=== PATIENT | female | born 1975 | race Caucasian/White ===

== ENCOUNTER 2022-05-15 11:25 | Outpatient (CLI) | payer BC, SELFPAY | END 2022-05-15 11:26 | disposition home or self-care (01) | PROVIDERS: PCP Physician Assistant Medical; Visit Provider Physician Assistant Medical | DX: I10 Essential (primary) hypertension (principal); F32.A Depression, unspecified; F41.9 Anxiety disorder, unspecified | CPT/HCPCS: 80053; 80061; 84443 ==

== ENCOUNTER 2023-06-04 08:40 | Outpatient (CLI) | payer OTHER, SELFPAY | END 2023-06-04 08:41 | disposition home or self-care (01) | LOC: NFLDREF 08:41 | PROVIDERS: PCP Physician Assistant Medical; Visit Provider Physician Assistant | DX: N92.0 Excessive and frequent menstruation with regular cycle (principal); Z13.29 Encounter for screening for other suspected endocrine disorder | CPT/HCPCS: 84443 ==

== ENCOUNTER 2023-06-15 13:58 | Outpatient (CLI) | payer OTHER, SELFPAY ==
--- NOTE | 2023-06-15 14:00 | US_ITS ---
Patient: DOMONIQUE LAN Facility:?[facility] Patient ID:?[id number] Site Patient ID:?[id number]. Site :?[id number] Study:?US-Pelvis TRANSABDOMINAL AND TRANSVAGINAL-06/15/2023 2:44:00 PM Ordering Physician:?GAGANDEEP JENKINS Final Report: INDICATION: Excessive and frequent menstruation. TECHNIQUE: Transabdominal and transvaginal pelvic ultrasound. Grayscale and duplex Doppler images. FINDINGS: Uterus is anteverted and measures 0.3 x 4.9 x 6.6 cm. Endometrial stripe thickness is 1.4 cm. 2.2 cm intramural and 1.9 cm submucosal leiomyomas. Few tiny cystic spaces within the junctional zone suggesting adenomyosis. Right ovary contains a 3.5 cm simple cyst/dominant follicle. Both ovaries have normal color and spectral Doppler flow. No abnormal adnexal mass or free fluid. IMPRESSION: 1. Two uterine leiomyomas, one of which is submucosal. 2. Possible adenomyosis. 3. 1.4 cm endometrium. Dictated by Yoan Castillo MD @ 06/16/2023 8:52:31 AM Signed by:?Yoan Castillo MD @06/16/2023 8:52:31 AM (Electronic Signature)
== END 2023-06-15 13:59 | disposition home or self-care (01) ==
LOC: US 13:58
PROVIDERS: PCP Physician Assistant Medical; Visit Provider Physician Assistant
DX: N92.0 Excessive and frequent menstruation with regular cycle (principal); D25.9 Leiomyoma of uterus, unspecified; R93.89 Abnormal findings on diagnostic imaging of other specified body structures
CPT/HCPCS: 76830; 76856; 93976

== ENCOUNTER 2023-10-01 07:26 | Day surgery (SDC) | payer OTHER, SELFPAY ==
[2023-10-01] MEDS: LACTATED RINGERS 1000 ML 1,000 ML 100 ML IV (07:20)
[2023-10-01 07:54] VITALS: BP 134/88; PULSE 81; RESP 20; TEMP 36.7; O2SAT 97
[2023-10-01 07:56] VITALS: BMI 31.2
[2023-10-01 08:03] LABS: Basophils Absolute Auto 0.04 K/uL (0.00-0.30); Basophils Percent Auto 0.5 % (0.0-3.0); Eosinophils Absolute Auto 0.07 K/uL (0.00-0.50); Eosinophils Percent Auto 0.9 % (0.0-7.0); Hematocrit 38.4 % (33.0-51.0); Hemoglobin* 12.1 gm/dL (12.0-16.0); Lymphocytes Absolute Auto 2.49 K/uL (0.90-2.90); Lymphocytes Percent Auto 32.6 % (20-44); Mean Corpuscular HGB Conc 32 gm/dL (32-36); Mean Corpuscular Hemoglobin 25 pg (26-34); Mean Corpuscular Volume 81 fL (80-100); Monocytes Percent Auto 5.8 % (0.0-11.0); Neutrophils Absolute Auto 4.59 K/uL (1.7-7.0); Neutrophils Percent Auto 60.2 % (42.0-72.0); Platelet Count* 314 K/uL (140-440); RDW Coefficient of Variation % 15.7 % (11.5-15.5); Red Blood Count 4.76 m/uL (4.00-5.20); White Blood Count* 7.63 K/uL (4.50-11.00)
[2023-10-01 08:04] LABS: Ur HCG Qualitative* Negative (Negative)
[2023-10-01 08:06] LABS: Slide Review Reflex No
[2023-10-01] MEDS: SODIUM CHLORIDE 0.9 % (FLUSH) 10 ML SYRINGE IVF (08:21)
[2023-10-01 08:25] LABS: Creatinine* 0.7 mg/dL (0.5-1.5); Est. Creatinine Clearance* 87.48; Estimated Glomerular Filt Rate 106 ml/min
--- NOTE | 2023-10-01 08:56 | W.PM.H&PU ---
History & Physical Update History & Physical Update H&P Reviewed and patient assessed: No changes noted H&P Updates: Had good results with TXA
--- NOTE | 2023-10-01 09:43 | W.ANESCHARGE ---
Anesthesia Charges Start Date/Time Anesthesia Start Date: 10/01/23 Anesthesia Start Time: 08:54 Stop Date/Time Anesthesia Stop Date: 10/01/23 Anesthesia Stop Time: 09:41
--- NOTE | 2023-10-01 09:44 | W.PM.GYNPROC ---
Procedure Note Time Seen by Provider: 09:44 Date of procedure: 10/01/23 Will [facility] bill your pro fee for this procedure?: Yes Pre-op diagnosis: 1. Abnormal uterine bleeding 2. Leiomyomas on ultrasound Post-op diagnosis: 1. Abnormal uterine bleeding 2. Possible submucosal polyp Procedure: 1. Hysteroscopy 2. Dilation and curettage 3. Mirena IUD insertion Anesthesia: MAC and local Complications: None Surgeon: Beena Sevilla MD IV fluids (mL): 1,000 Urine Output (mL): 200 Pathology: specimen obtained, sent to pathology Condition: stable Disposition: same day Procedure Description: Estimated blood loss: <5 mL Specimen: Endometrial curettings to pathology. Findings: Exam under anesthesia: Uterus: anteverted position, less than 6 week sized, mobile, with no masses or nodularity palpable. Uterus sounded to 10 cm. No adnexal masses or nodularity palpable. On hysteroscopy: Possible small anterior uterine wall polyp, thickened endometrium. Normal bilateral tubal ostia. Procedure: Marly was taken to the operating operating room more conscious sedation was found to be adequate. The patient was placed on in the dorsal lithotomy position and an exam under anesthesia was performed with findings stated above. She was then prepped and draped in a normal sterile manner. A bivalve speculum was placed in the vagina. The cervix appears nulliparous. Otherwise no abnormalities. The paracervical block was placed using 1% lidocaine with epi, 5 mL was injected at the 4 and 8 o'clock positions on the cervix. The anterior lip of the cervix was grasped with a long Allis clamp. The cervix dilated to Hegar 6. The uterus sounded to 10 cm. The Truclear hysteroscope was advanced into the uterus. A diagnostic hysteroscopy was performed with normal saline as the insufflation medium. Findings are stated above. The Truclear incisor was then advanced through the camera. The curettage was performed with the soft tissue incisor. The incisor was then removed. The endometrial cavity appeared normal. Saline deficit at the end of the procedure 80 mL. Total saline used 705 mL. Nothing required for hemostasis. The hysteroscope, Allis clamp and speculum were removed from the vaginal canal. The patient tolerated the procedure well. Sponge, lap and instrument counts were correct x2 at the end of the procedure. The patient was taken to the recovery area in stable condition.
--- NOTE | 2023-10-01 09:46 | SUR.OPER ---
DEFICIT 80ML
[2023-10-01 09:47] VITALS: BP 116/79; PULSE 63; RESP 16; TEMP 36.3; O2SAT 96
[2023-10-01] MEDS: LACTATED RINGERS 1000 ML 1,000 ML 50 ML IV (09:52)
[2023-10-01 10:02] VITALS: BP 122/76; PULSE 55; RESP 16; O2SAT 95
[2023-10-01 10:18] VITALS: BP 115/71; PULSE 59; RESP 16; TEMP 36.6; O2SAT 97
== END 2023-10-01 10:44 | disposition home or self-care (01) ==
PROVIDERS: PCP Physician Assistant Medical; Visit Provider Obstetrics & Gynecology
PROC: 0UDB8ZZ Extraction of Endometrium, Via Natural or Artificial Opening Endoscopic (ICD-10-PCS; CPT 58558; principal; 2023-10-01 08:45)
DX: N93.8 Other specified abnormal uterine and vaginal bleeding (principal); N84.0 Polyp of corpus uteri; R93.89 Abnormal findings on diagnostic imaging of other specified body structures
CPT/HCPCS: 58558; 58300; 00952; 36415; 81025; 82565; 85025; 86850; 86900; 86901; 88305; C1782; J1100; J1885; J2250; J2405; J2704; J3010; J7120; J7298